=== PATIENT | male | born 1990 | race Caucasian/White ===

== ENCOUNTER → 2018-12-26 | Outpatient (REF) | payer OTHER | LOC: M LAB REF 09:14 | PROVIDERS: ATTEND Physician Assistant Medical | DX: J01.10 Acute frontal sinusitis, unspecified (principal) ==

== ENCOUNTER 2021-04-03 13:06 | Emergency (ER) | payer OTHER ==
[~2021-04-03] VITALS: Ht 167.6 cm; Wt 97.7 kg
[2021-04-03 13:07] VITALS: BP 138/76
--- NOTE | 2021-04-03 16:28 | REP ---
INDICATION: pain posterior. COMPARISON: None. TECHNIQUE: Multiple ultrasonographic images of the deep venous structures of the right lower extremity were obtained from the inguinal ligament to the ankle. Venous compression techniques, color doppler imaging, and augmentation techniques were also obtained where appropriate. As per the ACR guidelines the anterior tibial vein can not be effectively evaluated. Only compression techniques in the calf on the peroneal and posterior tibial veins was attempted/performed. FINDINGS: There is no abnormal echogenic material seen within any of the visualized deep venous structures that would suggest acute thrombosis. Coaptation is unremarkable throughout. Doppler interrogation shows an expected response to respiratory variability and augmentation in the thigh. Compression techniques in the calf were unobtainable. The color flow images show what appears to be a normal vascular pattern throughout the thigh. IMPRESSION: There is no ultrasonographic evidence of deep venous thrombosis involving any of the visualized deep venous structures of the right lower extremity as described above. Due to technical parameters calf vein DVT can not be ruled out. <Electronically signed by Boris Gray > 04/03/21 [id number]
== END 2021-04-03 17:53 | disposition home or self-care (01) ==
LOC: M ED 13:06
DX: M79.604 Pain in right leg (principal); F17.200 Nicotine dependence, unspecified, uncomplicated; F19.10 Other psychoactive substance abuse, uncomplicated

== ENCOUNTER → 2021-05-15 | Outpatient (CLI) | payer OTHER | LOC: M SOG 11:37 | PROVIDERS: ATTEND Orthopaedic Surgery | DX: M54.16 Radiculopathy, lumbar region (principal) ==